=== PATIENT | female | born 1970 | race African-American/Black ===

== ENCOUNTER 2017-04-06 17:25 | Emergency (ER) | payer OTHER ==
[~2017-04-06] VITALS: Ht 162.6 cm; Wt 72.6 kg
[~2017-04-06 17:25] MED LIST: ALBUTEROL SULF8.5 GM INH; AMLODIPINE BESY10 MG ORAL; AZITHROMYCIN250 MG ORAL; AZITHROMYCIN250 MG PO; CYCLOBENZAPRINE10 MG ORAL; FERROUS SULFAT325 MG ORAL; FLUOCINOLONE AC15 G2; GLIPIZIDE5 MG ORAL; HYDROCODON-ACE1 EA15; HYDROXYZINE HCL50 M1; IBUPROFEN600 M1; IBUPROFEN600 MG ORAL; KEFLEX500 MG ORAL; LISINOPRIL20 MG ORAL; LISINOPRIL30 MG ORAL; METFORMIN HCL850 M1 ORAL; NKM; NORCO 5-325 TA1 EACH ORAL; PHENTERMINE HCL30 MG; PREPARATION H1 EAC3 RC; SALINE NASAL SP45 ML NASAL; TAMIFLU75 MG ORAL; TRAMADOL HCL50 MG ORAL; TRIAMTERENE-HC1 EAC5; XENICAL120 MG; ZOFRAN ODT4 MG ORAL; ZOFRAN4 M3 ORAL
[2017-04-06] MEDS ORDERED: Ketorolac 30mg Inj IV ONE (18:15)
[2017-04-06] MEDS ORDERED: Ketorolac 60mg Inj IM ONE (18:45)
[2017-04-06] MEDS ORDERED: Acetaminophen 500mg (ES) tab ORAL ONE (18:45)
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
[2017-04-06] MEDS ORDERED: TRAMADOL HCL50 MG ORAL (21:45)
[2017-04-06] MEDS ORDERED: IBUPROFEN600 MG ORAL (21:45)
[2017-04-06] MEDS ORDERED: CYCLOBENZAPRINE10 MG ORAL (21:45)
[2017-04-06 21:50] VITALS: BP 138/88
[2017-04-06 21:55] VITALS: BP 138/88
--- NOTE | 2017-04-07 11:17 | Diagnostic Imaging Report ---
Indication: Back pain Findings: 2 views of the thoracic spine were obtained. Normal bony mineralization and alignment are demonstrated. Minimal osteophyte formation noted at the level the vertebral endplates. Vertebral body heights and intervertebral disc heights are normal. The posterior elements including the facets are unremarkable. Soft tissues are unremarkable. Cholecystectomy clips are present. Impression: No acute injury identified
--- NOTE | 2017-04-07 11:28 | Diagnostic Imaging Report ---
Indication: Neck Pain Findings: 3 views of the cervical spine were obtained. There is no acute fracture identified. There is reversal of cervical lordosis. The open-mouth odontoid view shows an intact dens and good alignment of the lateral masses with respect to the body of C2. There is not adequate visualization of the cervical spine below C5. There is no soft tissue swelling. Impression: No acute injury.. Suboptimal visualization of the lower cervical spine
--- NOTE | 2017-04-07 11:28 | Diagnostic Imaging Report ---
Indication: Back pain Comparison: None Findings: 3 views of the lumbar spine were obtained. Multilevel narrowing of intervertebral disks and associated endplate and Facet osteophytes are present. No malalignment identified. No acute fracture definitely seen. Impression: Mild spondylosis. No acute injury appreciated.
== END 2017-04-06 21:54 | disposition home or self-care (01) ==
LOC: EMR 18:54
DX: S13.4XXA Sprain of ligaments of cervical spine, initial encounter (principal); S39.012A Strain of muscle, fascia and tendon of lower back, initial encounter; I10 Essential (primary) hypertension; E11.9 Type 2 diabetes mellitus without complications; V43.52XA Car driver injured in collision with other type car in traffic accident, initial encounter; Y93.9 Activity, unspecified; Y92.410 Unspecified street and highway as the place of occurrence of the external cause
CPT/HCPCS: 72020; 72040; 72052; 72070; 96372; 99283

== ENCOUNTER 2017-11-30 23:29 | Emergency (ER) | payer OTHER ==
[~2017-11-30] VITALS: Ht 154.9 cm; Wt 81.6 kg
[2017-12-01 00:10] VITALS: BP 145/87
[2017-12-01] MEDS ORDERED: traMADol 50mg tab ORAL ONE (00:15)
--- NOTE | 2017-12-01 00:40 | Emergency Room Report ---
History of Present Illness General Chief Complaint: Earache Source: Patient Present Illness HPI Is a 47-year-old female with history of GI bleed in the past. She presents with chief complaint of bilateral ear pain. Onset for a week. Also with headache. Pain is 8/10. No nausea no vomiting. Tylenol is not helping. No fever or chills. Also complaining of generalize weakness and think that her hemoglobin may be low. No bleeding however. Allergies: Coded Allergies: No Known Allergies (Verified Allergy, Unknown, 02/26/10) Patient History Past Medical History: see triage record, old chart reviewed Past Surgical History: other Pertinent Family History: none Social History: Denies: smoking Last Menstrual Period: Nov 0708/2017 Now: No Immunizations: other Reviewed Nursing Documentation: PMH: Agreed, PSxH: Agreed Nursing Documentation-PMH Hx Cardiac Problems: No Hx Hypertension: Yes Hx Asthma: No Hx COPD: No Hx Diabetes: Yes Hx Cancer: No Hx Gastrointestinal Problems: No Hx Dialysis: No Hx Neurological Problems: No Hx Cerebrovascular Accident: No Hx Seizures: No Hx Dizziness: Yes - RECENTLY Hx Headaches: Yes - 1 WEEK Hx Numbness: Yes - HANDS Hx Weakness: Yes - GEN BODY Hx Fatigue: Yes - GEN BODY Review of Systems Eye: Denies: eye pain, blurred vision ENT: Reports: ear pain, Denies: nose congestion, throat swelling Respiratory: Denies: cough, shortness of breath Cardiovascular: Denies: chest pain, palpitations Gastrointestinal: Denies: abdominal pain, diarrhea, nausea, vomiting Musculoskeletal: Denies: back pain, joint pain Skin: Denies: rash Neurological: Denies: headache, numbness Endocrine: Denies: increased thirst, increased urine Hematologic/Lymphatic: Denies: easy bruising All Other Systems: negative except mentioned in HPI Physical Exam Vital Signs Date Time Temp Pulse Resp B/P (MAP) Pulse Ox O2 Delivery O2 Flow Rate FiO2 11/30/17 23:49 98.2 113 20 154/89 98 Room Air vitals with tachycardia and high blood pressure Sp02 EP Interpretation: reviewed, normal General Appearance: well appearing, no apparent distress, alert Head: normocephalic, atraumatic Eyes: bilateral eye PERRL, bilateral eye EOMI ENT: hearing grossly normal, normal pharynx, other - Left TM with fluid Neck: full range of motion, supple, no meningismus Respiratory: chest non-tender, lungs clear, normal breath sounds Cardiovascular #1: regular rate, rhythm, no murmur Gastrointestinal: normal bowel sounds, non tender, no mass, no organomegaly, no bruit, non-distended Musculoskeletal: back normal, gait/station normal, normal range of motion Psychiatric: mood/affect normal Skin: warm/dry Medical Decision Making Diagnostic Impression: Primary Impression: Earache symptoms in both ears Additional Impressions: Left otitis media with effusion Headache Qualified Codes: R51 - Headache Anemia, unspecified Qualified Codes: D64.9 - Anemia, unspecified ER Course Present with headache and ear pain. May be a sinus issue going on. No evidence of mastoiditis, meningitis, bleed or neoplastic process. We'll discharge home. Last Vital Signs Date Time Temp Pulse Resp B/P (MAP) Pulse Ox O2 Delivery O2 Flow Rate FiO2 12/01/17 00:10 98.1 98 19 145/87 97 Room Air Status: improved Disposition: HOME, SELF-CARE Condition: Stable Scripts Amoxicillin* (AMOXIL*) 500 Mg Capsule 500 MG ORAL THREE TIMES A DAY, #21 CAP Prov: ALEK INMAN M.D. 12/01/17 Hydrocodone Bit/Acetaminophen 5-325* (NORCO 5-325*) 1 Each Tablet 1 TAB ORAL Q6H Y for For Pain, #15 TAB 0 Refills Prov: ALEK INMAN M.D. 12/01/17 Referrals: [facility],REFERRING (PCP) Patient Instructions: Otitis Media, Adult, [id number] Additional Instructions: Followup with your DrPb 7 days. Return if symptom worsen. ALEK INMAN M.D. Dec 01, 2017 00:40
[2017-12-01 00:57] LABS: BASOPHILS % (AUTO) 1.4 % (0.0-2.0); EOSINOPHILS % (AUTO) 3.3 % (0.0-3.0); HEMATOCRIT 31.8 % (37.0-47.0); LYMPHOCYTES % (AUTO) 16.9 % (20.0-45.0); MEAN CORPUSCULAR VOLUME 62 FL (80-99); NEUTROPHILS % (AUTO) 73.4 % (45.0-75.0); PLATELET COUNT 242 K/UL (150-450); RED BLOOD COUNT 5.13 M/UL (4.20-5.40); RED CELL DISTRIBUTION WIDTH 17.3 % (11.6-14.8); WHITE BLOOD COUNT 10.3 K/UL (4.8-10.8)
[2017-12-01] MEDS ORDERED: NORCO 5-325 TA1 EACH ORAL (01:12)
[2017-12-01] MEDS ORDERED: AMOXICILLIN500 MG ORAL (01:12)
[2017-12-01 01:15] VITALS: BP 132/86
[2017-12-01 01:25] VITALS: BP 132/86
[2018-01-29] MEDS ORDERED: NORCO 5-325 TA1 EACH ORAL (18:57)
[2018-01-29] MEDS ORDERED: AUGMENTIN 875-1 EAC1 ORAL (18:57)
== END 2017-12-01 01:25 | disposition home or self-care (01) ==
LOC: EMR 12-01 00:18
DX: H66.92 Otitis media, unspecified, left ear (principal); R51 Headache; I10 Essential (primary) hypertension; E11.9 Type 2 diabetes mellitus without complications
CPT/HCPCS: 36415; 85025; 99284

== ENCOUNTER 2018-01-12 18:35 | Emergency (ER) | payer MEDICAID, OTHER ==
[~2018-01-12] VITALS: Ht 154.9 cm; Wt 83.5 kg
[~2018-01-12 18:35] MED LIST changes: +AMOXICILLIN500 MG ORAL
[2018-01-12 19:00] VITALS: BP 165/99
[2018-01-12] MEDS ORDERED: Lidocaine 1% MPF 10mg/ml 5ml INJ ONE (19:30)
[2018-01-12] MEDS ORDERED: HYDROcodone/Acetamin 7.5/325 tab ORAL ONE (20:00)
--- NOTE | 2018-01-12 20:23 | Emergency Room Report ---
History of Present Illness General Chief Complaint: General Complaint Source: Patient, Medical Record Present Illness HPI 47-year-old female presents to the emergency department complaining of progressive 10 out of 10 in severity localized pain to the right distal thumb about the area of her fingernail over the course of 2 days. Patient reports that she believes she recalls having a hangnail 2 days prior. Patient had acrylic nails placed recently as well. Patient reports swelling, erythema and tenderness primarily to one portion of the cuticle which has progressed. Patient denies finger pad tenderness, fevers, chills, streaking from the finger at the hand/arm. Patient denies history of immunocompromise, recent trauma or fall. Denies numbness tingling or loss of sensation or gross motor movements of the extremities, incontinence of bowel or bladder. Denies CP, Palpitations, LOC , AMS, dizziness, Changes in Vision, Sensation, paresthesias, or a sudden severe headache. She is right-hand dominant. Allergies: Coded Allergies: No Known Allergies (Verified Allergy, Unknown, 02/26/10) Patient History Past Medical History: see triage record Past Surgical History: none Pertinent Family History: none Last Menstrual Period: 01/12/18 Reviewed Nursing Documentation: PMH: Agreed, PSxH: Agreed Nursing Documentation-PMH Past Medical History: No History, Except For Hx Cardiac Problems: No Hx Hypertension: Yes Hx Asthma: No Hx COPD: No Hx Diabetes: Yes Hx Cancer: No Hx Gastrointestinal Problems: No Hx Dialysis: No Hx Neurological Problems: No Hx Cerebrovascular Accident: No Hx Seizures: No Hx Dizziness: Yes - RECENTLY Hx Headaches: Yes - 1 WEEK Hx Numbness: Yes - HANDS Hx Weakness: Yes - GEN BODY Hx Fatigue: Yes - GEN BODY Review of Systems All Other Systems: negative except mentioned in HPI Physical Exam Vital Signs Date Time Temp Pulse Resp B/P (MAP) Pulse Ox O2 Delivery O2 Flow Rate FiO2 01/12/18 18:38 98.7 99 18 165/99 97 Room Air 98.8 Sp02 EP Interpretation: reviewed, normal General Appearance: no apparent distress, alert, GCS 15, non-toxic Head: normocephalic, atraumatic ENT: hearing grossly normal, normal voice Neck: full range of motion Respiratory: lungs clear, normal breath sounds, speaking full sentences Cardiovascular #1: regular rate, rhythm, normal capillary refill Musculoskeletal: back normal, gait/station normal, normal range of motion, tender - TTP to the lateral cuticle line of the right thumb, no finger pad tenderness or erythema. erythema and swelling noted to the dorsum of the right thumb about the cuticle. Neurologic: alert, oriented x3, responsive, motor strength/tone normal, sensory intact, speech normal, grossly normal Psychiatric: judgement/insight normal Skin: warm/dry, well hydrated, other - erythema, swelling to the dorsum of the right thumb at the lateral cuticle line. Procedures Incision and Drainage Incision and Drainage : Consent: Verbal Site: Right Thumb Blade Size: 11 I & D Procedure: betadine prep Wound Location: upper extremity - right thumb- lateral cuticle Wound's Depth, Shape: linear Wound Length (cm): 0 Wound Explored: contaminated - some purulent drainage and blood was expressed Anesthesia: 1% Lidocaine Volume Anesthetic (ccs): 6 Splint Applied?: Yes Type of Splint Applied: Finger Splint Sling Applied?: No Patient Tolerated: Well Complications: None Progress - verbal consent was received . - lesion was cleaned with betadine prep. -Digital Block was performed using 6cc of 1% plain Lidocaine. - Small incision using a sterile No. 11 Scalpel blade to drain the paronychia. pt. tolerated well without complication. - sterile band-aid was then applied afterward. Medical Decision Making PA Attestation Dr. Evans is my supervising Physician whom patient management has been discussed with. Diagnostic Impression: Primary Impression: Paronychia of finger Qualified Codes: L03.011 - Cellulitis of right finger ER Course 47-year-old female presents to the emergency department complaining of progressive 10 out of 10 in severity localized pain to the right distal thumb about the area of her fingernail over the course of 2 days. Patient reports that she believes she recalls having a hangnail 2 days prior. Patient had acrylic nails placed recently as well. Patient reports swelling, erythema and tenderness primarily to one portion of the cuticle which has progressed. Patient denies finger pad tenderness, fevers, chills, streaking from the finger at the hand/arm. Patient denies history of immunocompromise, recent trauma or fall. Denies numbness tingling or loss of sensation or gross motor movements of the extremities, incontinence of bowel or bladder. Denies CP, Palpitations, LOC , AMS, dizziness, Changes in Vision, Sensation, paresthesias, or a sudden severe headache. She is right-hand dominant. Ddx considered but are not limited to cellulitis, paronychia, eponychia, ingrown toe nail, fracture, d/L, gout Vital signs: are WNL, pt. is afebrile H&PE are most consistent with left middle finger paronychia ORDERS: none required at this time, the diagnosis is clinical ED INTERVENTIONS: - verbal consent was received . - lesion was cleaned with betadine prep. -Digital Block was performed using 6cc of 1% plain Lidocaine. - Small incision using a sterile 25g needle to drain the paronychia. pt. tolerated well without complication. - sterile band-aid was then applied afterward. - will d/c pt. with PO abx. D/w Patient is to regularly do warm water soaks with affected finger at minimum a 6 times per day. Discussed with patient she'll be discharged with oral antibiotics, topical antibiotic and instructed to keep a close eye on the finger for worsening or new symptoms which would indicate prompt return back to emergency department for more aggressive treatment. DISCHARGE: At this time pt. is stable for d/c to home. Will provide printed patient care instructions, and any necessary prescriptions. Care plan and follow up instructions have been discussed with the patient prior to discharge. Last Vital Signs Date Time Temp Pulse Resp B/P (MAP) Pulse Ox O2 Delivery O2 Flow Rate FiO2 01/12/18 19:00 98.8 18 165/99 97 Room Air 98.8 01/12/18 18:38 99 Disposition: HOME, SELF-CARE Condition: Stable Scripts Mupirocin* (MUPIROCIN*) 22 Gm Oint...g. 1 APPLIC TOPIC THREE TIMES A DAY, #22 GM Prov: Angelika Murry P.A. 01/12/18 Clindamycin Hcl (CLINDAMYCIN HCL) 300 Mg Capsule 300 MG ORAL FOUR TIMES A DAY for 7 Days, #28 CAP Prov: Angelika Murry P.A. 01/12/18 Ibuprofen* (MOTRIN*) 600 Mg Tablet 600 MG ORAL THREE TIMES A DAY, #30 TAB 0 Refills Prov: Angelika Murry P.A. 01/12/18 Hydrocodone Bit/Acetaminophen 5-325* (NORCO 5-325*) 1 Each Tablet 1 TAB ORAL Q6H Y for For Pain, #6 TAB 0 Refills Prov: Angelika Murry 01/12/18 Departure Forms: Return to Work Return to Work Date: Jan 16, 2018 Work Restrictions: No Heavy Lifting Other Restrictions: light duty x 1 week. Return to Full Activity: Jan 23, 2018 Patient Instructions: Paronychia Additional Instructions: Take medications as directed. WARM WATER SOAKS at least SIX TIMES PER DAY x 1 week Follow up with a Primary Care Provider in 3 days, even if your symptoms have resolved. --Please review list of primary care clinics, if you do not already have a primary care provider Return sooner to ED if new symptoms occur, or current symptoms become worse. Do not drink alcohol, drive, or operate heavy machinery while taking [place] as this may cause drowsiness. - Please note that this Emergency Department Report was dictated using [employer] conditioner filling technology software, occasionally this can lead to erroneous entry secondary to interpretation by the dictation equipment. Angelika Murry Jan 12, 2018 20:23
[2018-01-12] MEDS ORDERED: NORCO 5-325 TA1 EACH ORAL (20:25)
[2018-01-12] MEDS ORDERED: MUPIROCIN22 GM TOPIC (20:25)
[2018-01-12] MEDS ORDERED: IBUPROFEN600 MG ORAL (20:25)
[2018-01-12] MEDS ORDERED: CLINDAMYCIN HC300 MG ORAL (20:25)
[2018-01-12] MEDS ORDERED: Clindamycin 150mg cap ORAL ONE (20:30)
[2018-01-12 20:35] VITALS: BP 165/99
[2018-01-29] MEDS ORDERED: AUGMENTIN 875-1 EAC1 ORAL (18:57)
[2018-01-29] MEDS ORDERED: NORCO 5-325 TA1 EACH ORAL (18:57)
== END 2018-01-12 20:34 | disposition home or self-care (01) ==
LOC: EMR 19:00
DX: L03.011 Cellulitis of right finger (principal); I10 Essential (primary) hypertension; E11.9 Type 2 diabetes mellitus without complications
CPT/HCPCS: 10060; 99283

== ENCOUNTER 2018-01-19 00:31 | Emergency (ER) | payer MEDICAID ==
[~2018-01-19] VITALS: Ht 154.9 cm; Wt 84.8 kg
[~2018-01-19 00:31] MED LIST changes: +CLINDAMYCIN HC300 MG ORAL; +MUPIROCIN22 GM TOPIC
[2018-01-19] MEDS ORDERED: Lidocaine 1% Plain 30 ml INJ ONE (01:30)
[2018-01-19 03:04] VITALS: BP 170/101
--- NOTE | 2018-01-19 03:20 | Emergency Room Report ---
History of Present Illness General Chief Complaint: Upper Extremity Injury Source: Patient Present Illness HPI Patient with R thumb pain. Had I and D 01/12 after 2 days of pain. On clindamycin. Still with swelling and tenderness R thumb. After d/c, no continued drainage. Soaking in peroxide. Pain again 09/07, constant and burning pressure, not radiating. She states it started in the pulp of her thumb , but is now localized on the side of the nail. No fevers or chills. No other somatic complaints. Diabetic - states glucose well controlled. 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 + (denies now), Denies: smoking Social History Narrative with son Last Menstrual Period: Dec Reviewed Nursing Documentation: PMH: Agreed, PSxH: Agreed Nursing Documentation-PMH Hx Cardiac Problems: No Hx Hypertension: Yes Hx Asthma: No Hx COPD: No Hx Diabetes: Yes Hx Cancer: No Hx Gastrointestinal Problems: No Hx Dialysis: No Hx Neurological Problems: No Hx Cerebrovascular Accident: No Hx Seizures: No Hx Dizziness: Yes - RECENTLY Hx Headaches: Yes - 1 WEEK Hx Numbness: Yes - HANDS Hx Weakness: Yes - GEN BODY Hx Fatigue: Yes - GEN BODY Review of Systems All Other Systems: negative except mentioned in HPI Physical Exam Vital Signs Date Time Temp Pulse Resp B/P (MAP) Pulse Ox O2 Delivery O2 Flow Rate FiO2 01/19/18 00:37 97.3 116 18 166/101 95 Room Air 97.3 Sp02 EP Interpretation: reviewed, normal General Appearance: well appearing, no apparent distress, GCS 15 Head: normocephalic, atraumatic Eyes: bilateral eye normal inspection, bilateral eye PERRL ENT: hearing grossly normal, normal voice Neck: full range of motion, supple Respiratory: no respiratory distress, speaking full sentences Cardiovascular #2: 2+ radial (R) - good cap fill Musculoskeletal: gait/station normal, normal range of motion, swelling - ulnar side of thumb nail Neurologic: alert, sensory intact, normal gait, grossly normal Psychiatric: mood/affect normal Skin: other - paronychia Procedures Incision and Drainage Incision and Drainage : Consent: Verbal Site: R thumb Blade Size: 11 I & D Procedure: betadine prep, sterile drapes applied, sterile dressing applied, gauze wick placed Wound Location: upper extremity Wound's Depth, Shape: superficial Wound Length (cm): 0 - 0.5 cm Wound Explored: contaminated - irrigated Anesthesia: 1% Lidocaine Volume Anesthetic (ccs): 2 - 1.5 Patient Tolerated: Well Complications: None Progress I suggested wedge resection of nail. She refused. We agreed on I and D with drain placement. Medical Decision Making Diagnostic Impression: Primary Impression: incision and drainage paronychium Additional Impressions: Paronychia Encounter for incision and drainage procedure ER Course Patient returns on antibiotics after I and D procedure. DDx: cellulitis, recurrance of paronychia. See procedure note. No evidence of felon or cellulitis. Tolerated procedure well. Pain after tx with motrin as she is driving. Patient stable for outpatient observation and treatment. Last Vital Signs Date Time Temp Pulse Resp B/P (MAP) Pulse Ox O2 Delivery O2 Flow Rate FiO2 01/19/18 03:43 97.3 18 166/101 95 Room Air 207.1 01/19/18 03:04 83 Status: improved Disposition: HOME, SELF-CARE Condition: Improved Scripts Ibuprofen* (MOTRIN*) 600 Mg Tablet 600 MG ORAL Q6H Y for For Pain, #20 TAB Prov: Chung Beck M.D. 01/19/18 Hydrocodone Bit/Acetaminophen 5-325* (NORCO 5-325*) 1 Each Tablet 1 TAB ORAL Q6H Y for For Pain, #12 TAB 0 Refills Prov: Chung Beck M.D. 01/19/18 Bacitracin (Bacitracin) 28.4 Gm Oint...g. 1 APPLIC TOPIC BID, #20 GM Prov: Chung Beck M.D. 01/19/18 Referrals: [facility],REFERRING (PCP) Chung Beck M.D. Jan 19, 2018 03:20
[2018-01-19] MEDS ORDERED: IBUPROFEN600 MG ORAL (03:23)
[2018-01-19] MEDS ORDERED: NORCO 5-325 TA1 EACH ORAL (03:23)
[2018-01-19] MEDS ORDERED: BACITRACIN15 GM TOPIC (03:23)
[2018-01-19 03:43] VITALS: BP 166/101
[2018-01-29] MEDS ORDERED: AUGMENTIN 875-1 EAC1 ORAL (18:57)
[2018-01-29] MEDS ORDERED: NORCO 5-325 TA1 EACH ORAL (18:57)
== END 2018-01-19 03:44 | disposition home or self-care (01) ==
LOC: EMR 01:01
DX: L03.011 Cellulitis of right finger (principal); I10 Essential (primary) hypertension; E11.9 Type 2 diabetes mellitus without complications
CPT/HCPCS: 10060; 99284; J2001

== ENCOUNTER 2018-06-30 14:14 | Emergency (ER) | payer MEDICAID ==
[~2018-06-30] VITALS: Ht 152.4 cm; Wt 76.2 kg
[~2018-06-30 14:14] MED LIST changes: +AUGMENTIN 875-1 EAC1 ORAL; +BACITRACIN15 GM TOPIC
[2018-06-30 14:31] VITALS: BP 134/88
[2018-06-30] MEDS ORDERED: Tylenol #3 tab (300mg/30mg) ORAL ONE (15:15)
[2018-06-30] MEDS ORDERED: Meclizine 25mg tab ORAL ONE (15:15)
[2018-06-30 15:29] LABS: APPEARANCE,URINE CLEAR; BILIRUBIN, URINE NEGATIVE (NEGATIVE); COLOR,URINE PALE YELLOW; GLUCOSE, URINE (UA) 4+ (NEGATIVE); KETONES,URINE NEGATIVE (NEGATIVE); LEUKOCYTE ESTERASE ,URINE 1+ (NEGATIVE); NITRITE,URINE NEGATIVE (NEGATIVE); PH,URINE 5 (4.5-8.0); PROTEIN,URINE 2+ (NEGATIVE); UROBILINOGEN,URINE NORMAL MG/DL (0.0-1.0)
--- NOTE | 2018-06-30 16:04 | Emergency Room Report ---
History of Present Illness General Chief Complaint: Pain Present Illness HPI 47 Female presents to the ED c/o 10 out of 10 in severity pain to the right posterior ear radiating down the right side of the neck 2 weeks in addition to some lower abdominal discomfort 1 week. Patient reports chills, and denies fevers, nausea, vomiting, constipation or diarrhea. Patient denies tinnitus or changes in her hearing. Patient reports progressive onset of "imbalance "and dizziness were on occasion the room Will start to spin. She denies recent head trauma. Denies sudden onset headache. Denies midline neck pain, denies photophobia. denies unilateral muscular weaknesses. Pt. reports hx of diabetes and does not check her sugar regularly. Allergies: Coded Allergies: No Known Allergies (Verified Allergy, Unknown, 02/26/10) Patient History Past Surgical History: none Pertinent Family History: none Last Menstrual Period: 06/07/18 Now: No : 3 Para: 2 Reviewed Nursing Documentation: PMH: Agreed; PSxH: Agreed Nursing Documentation-PMH Hx Cardiac Problems: No Hx Hypertension: Yes Hx Asthma: No Hx COPD: No Hx Diabetes: Yes Hx Cancer: No Hx Gastrointestinal Problems: No Hx Dialysis: No Hx Neurological Problems: No Hx Cerebrovascular Accident: No Hx Seizures: No Hx Dizziness: Yes - RECENTLY Hx Headaches: Yes - 1 WEEK Hx Numbness: Yes - HANDS Hx Weakness: Yes - GEN BODY Hx Fatigue: Yes - GEN BODY Review of Systems All Other Systems: negative except mentioned in HPI Physical Exam Vital Signs Date Time Temp Pulse Resp B/P (MAP) Pulse Ox O2 Delivery O2 Flow Rate FiO2 06/30/18 14:21 98.4 110 21 134/88 99 Room Air 98.4 Sp02 EP Interpretation: reviewed, normal General Appearance: no apparent distress, alert, GCS 15, non-toxic Head: normocephalic, atraumatic Eyes: bilateral eye normal inspection, bilateral eye PERRL ENT: hearing grossly normal, normal voice, other - right TM is bulging and opaque, fluid line noted along the bottom edge. posterior cervical LAD palpable. Neck: full range of motion, tender lateral - right side up to the mastoid area. Respiratory: chest non-tender, lungs clear, normal breath sounds, speaking full sentences Cardiovascular #1: regular rate, rhythm Gastrointestinal: normal bowel sounds, soft, tenderness - lower abdominal TTP, mild, no peritoneal signs, mainly on left side. , other - no guarding, no single / localized area tenderness. Rectal: deferred Genitourinary: normal inspection, no CVA tenderness, other Musculoskeletal: back normal, gait/station normal, normal range of motion, non- tender Neurologic: alert, oriented x3, responsive, motor strength/tone normal, sensory intact, normal gait, speech normal, other - no nystagmus on exam, grossly normal Psychiatric: judgement/insight normal Skin: normal color, no rash, warm/dry, well hydrated Lymphatic: other - several Medical Decision Making PA Attestation Dr. Page is my supervising Physician whom patient management has been discussed with. Diagnostic Impression: Primary Impression: Otitis media of right ear Qualified Codes: H66.91 - Otitis media, unspecified, right ear ER Course 47 Female presents to the ED c/o 10 out of 10 in severity pain to the right posterior ear radiating down the right side of the neck 2 weeks in addition to some lower abdominal discomfort 1 week. Patient reports chills, and denies fevers, nausea, vomiting, constipation or diarrhea. Patient denies tinnitus or changes in her hearing. Patient reports progressive onset of "imbalance "and dizziness were on occasion the room Will start to spin. She denies recent head trauma. Denies sudden onset headache. Denies midline neck pain, denies photophobia. denies unilateral muscular weaknesses. Pt. reports hx of diabetes and does not check her sugar regularly. Ddx considered but are not limited to OM, OE, mastoiditis, TM perforation, FB Vital signs: Tachycardic, remaining re WNL, pt. is afebrile H&PE are most consistent with otitis media, and possible UTI. no evidence on PE to suggest acute abdomen or pelvic process. pt. NAD non-toxic in appearance. ORDERS: -UA: no evidence of bacteria, protein and glucose suggest elevated blood glucose levels. -OTOSCOPY: Right TM is white and opaque in color, bulging with mild fluid line noted. the left TM is unremarkable/wnl ED INTERVENTIONS: None required at this time. - Pt. is given strict ED return precautions, otherwise is to follow up with ENT Specialist in 3-5 days. DISCHARGE: At this time pt. is stable for d/c to home. With PO ABX. Will provide printed patient care instructions, and any necessary prescriptions. Care plan and follow up instructions have been discussed with the patient prior to discharge. Labs Test 06/30/18 15:05 Urine Color Pale yellow Urine Appearance Clear Urine pH 5 (4.5-8.0) Urine Specific [place] 1.010 (1.005-1.035) Urine Protein 2+ (NEGATIVE) Urine Glucose (UA) 4+ (NEGATIVE) Urine Ketones Negative (NEGATIVE) Urine Occult Blood Negative (NEGATIVE) Urine Nitrite Negative (NEGATIVE) Urine Bilirubin Negative (NEGATIVE) Urine Urobilinogen Normal MG/DL (0.0-1.0) Urine Leukocyte Esterase 1+ (NEGATIVE) Urine RBC 0-2 /HPF (0 - 2) Urine WBC 2-4 /HPF (0 - 2) Urine Squamous Epithelial Cells Few /LPF (NONE/OCC) Urine Bacteria Occasional /HPF (NONE) Last Vital Signs Date Time Temp Pulse Resp B/P (MAP) Pulse Ox O2 Delivery O2 Flow Rate FiO2 06/30/18 15:22 98.4 06/30/18 14:31 110 21 134/88 99 Room Air Disposition: HOME, SELF-CARE Condition: Stable Scripts Acetaminophen* (TYLENOL EXTRA STRENGTH*) 500 Mg Tablet 500 MG ORAL Q6H PRN for Mild Pain/Temp > 100.5, #20 TAB 0 Refills Prov: Agnelika Murry 06/30/18 Pseudoephedrine Hcl* (NEXAFED*) 30 Mg Tablet 30 MG ORAL Q6H PRN for congestion, #20 TAB Prov: Angelika Murry 06/30/18 Loratadine (CLARITIN) 10 Mg Tab.rapdis 10 MG ORAL DAILY, #20 TAB Begin Daily AFTER finnishing Meclizine. Prov: Angelika Murry 06/30/18 Meclizine Hcl* (MECLIZINE*) 25 Mg Tablet 25 MG ORAL THREE TIMES A DAY, #15 TAB Prov: Angelika Murry 06/30/18 Amoxicillin/Potassium Clav 875-125* (AUGMENTIN 875-125 TABLET*) 1 Each Tablet 1 TAB ORAL TWICE A DAY for 10 Days, #20 TAB Prov: Angelika Murry 06/30/18 Referrals: [facility] (PCP) Departure Forms: Return to Work Return to Work Date: Jul 12, 2018 Work Restrictions: None Other Restrictions: excuse for 06/30 - 07/05. may return sooner if symptoms have resolved. Return to Full Activity: Jul 05, 2018 Patient Instructions: Otitis Media, Adult, [id number], Vertigo, [id number] Additional Instructions: Take medications as directed. Follow up with an ENT Specialist in 3-5 days, even if your symptoms have resolved. --Please review list of primary care clinics, if you do not already have a primary care provider Return sooner to ED if new symptoms occur, or current symptoms become worse. Do not drink alcohol, drive, or operate heavy machinery while taking Meclizine as this may cause drowsiness. - Please note that this Emergency Department Report was dictated using Wheelyclient renewal specialist technology software, occasionally this can lead to erroneous entry secondary to interpretation by the dictation equipment. Angelika Murry Jun 30, 2018 16:04
[2018-06-30] MEDS ORDERED: CLARITIN10 M1 ORAL (16:07)
[2018-06-30] MEDS ORDERED: MECLIZINE HCL25 MG ORAL (16:07)
[2018-06-30] MEDS ORDERED: AUGMENTIN 875-1 EAC1 ORAL (16:07)
[2018-06-30] MEDS ORDERED: NEXAFED30 MG ORAL (16:07)
[2018-06-30 16:09] VITALS: BP 141/92
[2018-06-30] MEDS ORDERED: TYLENOL EXTRA500 MG ORAL (16:11)
[2018-06-30 16:13] VITALS: BP 141/92
== END 2018-06-30 16:10 | disposition home or self-care (01) ==
LOC: EMR 14:42
DX: H66.91 Otitis media, unspecified, right ear (principal); I10 Essential (primary) hypertension; E11.9 Type 2 diabetes mellitus without complications; R10.30 Lower abdominal pain, unspecified
CPT/HCPCS: 81003; 99283

== ENCOUNTER 2018-08-11 12:11 | Emergency (ER) | payer MEDICAID ==
[~2018-08-11] VITALS: Ht 154.9 cm; Wt 81.6 kg
[~2018-08-11 12:11] MED LIST changes: +CLARITIN10 M1 ORAL; +MECLIZINE HCL25 MG ORAL; +NEXAFED30 MG ORAL; +TYLENOL EXTRA500 MG ORAL
[2018-08-11 12:29] VITALS: BP 155/95
[2018-08-11] MEDS ORDERED: CLARITIN-D 121 EAC1 ORAL (12:48)
[2018-08-11] MEDS ORDERED: FLONASE ALLERG9.9 ML NS (12:48)
--- NOTE | 2018-08-11 12:49 | Emergency Room Report ---
History of Present Illness General Chief Complaint: Earache Source: Patient, Medical Record Present Illness HPI 47-year-old female patient presents ER complaining of right ear pain for over the past month. Reports was previously seen by [facility] and her primary care provider for similar symptoms. States she has taken [id number] antibiotics, antihistamines, eardrops for symptoms. States that she had a referral to an ENT specialist but it was not approved by her insurance and because her primary care provider was out of town she reported to the ER today for symptoms. Denies fever, chest pain, shortness of breath. Denies sore throat, tinnitus, vision changes. Reports history of high blood pressure and diabetes, states that both are well controlled, states taking medications for both. denies ear discharge or recent swimming. Reports recently seen by dentist a few months ago, denies tooth pain. also small amount of swelling near her left eye, reports it is pruritic. Denies recent injury or trauma. She denies pain with eye movement. Patient reports runny nose and allergy symptoms or numbness time worse at night. Allergies: Coded Allergies: No Known Allergies (Verified Allergy, Unknown, 02/26/10) Patient History Past Medical History: see triage record Last Menstrual Period: 08/08/18 Reviewed Nursing Documentation: PMH: Agreed; PSxH: Agreed Nursing Documentation-PMH Past Medical History: No History, Except For Hx Cardiac Problems: No Hx Hypertension: Yes Hx Asthma: No Hx COPD: No Hx Diabetes: Yes Hx Cancer: No Hx Gastrointestinal Problems: No Hx Dialysis: No Hx Neurological Problems: No Hx Cerebrovascular Accident: No Hx Seizures: No Hx Dizziness: Yes - RECENTLY Hx Headaches: Yes - 1 WEEK Hx Numbness: Yes - HANDS Hx Weakness: Yes - GEN BODY Hx Fatigue: Yes - GEN BODY Review of Systems All Other Systems: negative except mentioned in HPI Physical Exam Vital Signs Date Time Temp Pulse Resp B/P (MAP) Pulse Ox O2 Delivery O2 Flow Rate FiO2 08/11/18 12:19 98.3 95 18 155/95 100 Room Air 98.2 Sp02 EP Interpretation: reviewed, normal General Appearance: well appearing, no apparent distress, alert, GCS 15, non- toxic Head: normocephalic, atraumatic, other - no erythema or edema noted around the eyes, no eyelid swelling, no facial swelling, no erythema or edema noted over her mastoid processes bilaterally Eyes: bilateral eye normal inspection, bilateral eye PERRL, bilateral eye EOMI ENT: hearing grossly normal, normal pharynx, no angioedema, normal voice, TMs + canals normal, uvula midline, moist mucus membranes, nasal congestion, other - no cerumen bilaterally Neck: full range of motion, no bony tend Respiratory: lungs clear, normal breath sounds, no rhonchi, no respiratory distress, no accessory muscle use, no wheezing, speaking full sentences Cardiovascular #1: regular rate, rhythm, no edema Musculoskeletal: back normal, digits/nails normal, gait/station normal, normal range of motion, non-tender Neurologic: alert, oriented x3, responsive, technical supervisor III-XII nml as tested, motor strength/tone normal, sensory intact Skin: no rash Lymphatic: no adenopathy Medical Decision Making PA Attestation Dr. Grace is my supervising Physician whom patient management has been discussed with. Diagnostic Impression: Primary Impression: Allergic sinusitis ER Course Pt presents to ED c/o earache and swelling her left eye. DDX considered but are not limited to s influenza, viral URI, pneumonia, strep throat, rhinitis, sinusitis, otitis media, conjunctivitis, preseptal cellulitis , allergic reaction, stye, chalazion. no focal neuro deficits, cranial nerves intact as tested, patient talking and answering questions normally, does not require CT of head. VITAL SIGNS are WNL, patient is afebrile. Blood pressure mildly elevated at this time, will continue to monitor. Denies chest pain, shortness of breath, vision changes, does not require acute intervention at ER at this time. Follow with primary care provider discuss further treatment and referral. Advised on low-sodium diet, advised on diet and exercise. ER COURSE: no swelling or erythema noted on physical exam, EOMs intact, no vision loss, does not require CT of head, low suspicion for preseptal cellulitis. patient states swelling is pruritic, instructed to take Claritin for itching symptoms. Will provide Rx for patient. nonerythematous TMs, no effusion, no erythema or edema noted ear canal, no pain with ear pulling. No effusion. No suspicion for otitis media or externa. no erythema or edema noted in oral pharynx, no abscess, no tenderness to palpation of teeth, low suspicion for dental infection. Nasal congestion noted on physical exam, likely allergic symptoms causing sinusitis leading to her symptoms. patient previously treated with Augmentin, low suspicion for bacterial infection requiring repeated use of antibiotics. patient needs to follow-up with ENT specialist, provided contact information for patient. If unable to follow-up with PCP, follow-up free and low-cost healthcare clinics. Contact PCP to get referral for ENT specialist. DISCHARGE: -Rx given for Flonase -Rx given for Claritin-D for sinus congestion. At this time pt is stable for d/c to home. Patient reports being in no acute distress currently. Patient will be treated for probable sinus congestion and patient agrees with treatment plan. Patient to take medications as instructed Will provide with patient care instructions and any necessary prescriptions. Care plan and follow-up instructions provided. Patient instructed to follow-up with primary care provider in 3 - 5 days and discuss follow-up with dentist for any tooth pain. Patient questions asked and answered. ER precautions given. Patient instructed to return to ER immediately for any new or worsening of symptoms including but not limited to fever, facial weakness , difficulty speaking, difficulty breathing, difficulty swallowing. - Please note that this Emergency Department Report was dictated using Infomousshellfish shucker technology software, occasionally this can lead to erroneous entry secondary to interpretation by the dictation equipment. Last Vital Signs Date Time Temp Pulse Resp B/P (MAP) Pulse Ox O2 Delivery O2 Flow Rate FiO2 08/11/18 12:29 98.2 18 155/95 100 Room Air 98.2 08/11/18 12:19 95 Disposition: HOME, SELF-CARE Condition: Stable Scripts Fluticasone Propionate (Flonase Allergy Relief) 9.9 Ml [place].susp 9.9 ML NS BID, #9.9 ML Prov: Ray Heard 08/11/18 Loratadine/Pseudoephedrine (CLARITIN-D 12 HOUR TABLET) 1 Each Tab.er.12h 1 TAB ORAL EVERY 12 HOURS, #30 TAB Prov: Ray Heard 08/11/18 Patient Instructions: Allergies, Ihcy-uc-Otwm, Earache, Sinusitis, Adult, Easy- to-Read Additional Instructions: Follow-up with ENT specialist, unable to get referral from PCP follow-up with free and low-cost healthcare clinics. Followup with primary care provider in 3 -5 days. Take medications as directed. Continue to monitor high blood pressure and diabetes, some low-sodium diet. Patient questions asked and answered. ER precautions given, patient instructed to return to ER immediately for any new or worsening of symptoms. Ray Heard Aug 11, 2018 12:49
[2018-08-11 13:00] VITALS: BP 155/95
== END 2018-08-11 13:00 | disposition home or self-care (01) ==
LOC: EMR 12:43
DX: J30.9 Allergic rhinitis, unspecified (principal); H92.01 Otalgia, right ear; E11.9 Type 2 diabetes mellitus without complications; I10 Essential (primary) hypertension
CPT/HCPCS: 99283

== ENCOUNTER 2018-10-19 18:20 | Emergency (ER) | payer MEDICAID ==
[~2018-10-19] VITALS: Ht 157.5 cm; Wt 81.6 kg
[~2018-10-19 18:20] MED LIST changes: +CLARITIN-D 121 EAC1 ORAL; +FLONASE ALLERG9.9 ML NS
[2018-10-19] MEDS ORDERED: UNOBMED (18:32)
--- NOTE | 2018-10-19 18:54 | Emergency Room Report ---
History of Present Illness General Chief Complaint: Back Pain-No Injury Source: Patient, Medical Record Present Illness HPI 47-year-old female patient presents ER with multiple complaints. Patient reports that she has had burning pain with urination for the past 3 days as well as right-sided flank during this time. Denies hematuria, frequency, urgency, vaginal discharge. Denies foul-smelling odor. denies pain radiating down her legs. Denies bowel or bladder incontinence. Denies diarrhea. Also reports fall onto outstretched left hand 2 weeks ago. Reports right-hand dominant. Reports pain and swelling. Reports "initially thought was a bruise" and has been "soaking it." denies taking pain medicine. reports pain in hand and wrist. Denies fever, chest pain, shortness of breath. Denies head injury. Denies loss of consciousness or vomiting. reports history of diabetes. States takes medication, well-controlled. Allergies: Coded Allergies: No Known Allergies (Verified , 10/19/18) Patient History Past Medical History: see triage record Last Menstrual Period: 10/08/18 Now: No Reviewed Nursing Documentation: PMH: Agreed; PSxH: Agreed Nursing Documentation-PMH Past Medical History: No History, Except For Hx Cardiac Problems: No Hx Hypertension: Yes Hx Asthma: No Hx COPD: No Hx Diabetes: Yes Hx Cancer: No Hx Gastrointestinal Problems: No Hx Dialysis: No History Of Psychiatric Problem: No Hx Neurological Problems: No Hx Cerebrovascular Accident: No Hx Seizures: No Hx Dizziness: Yes - RECENTLY Hx Headaches: Yes - 1 WEEK Hx Numbness: Yes - HANDS Hx Weakness: Yes - GEN BODY Hx Fatigue: Yes - GEN BODY Review of Systems All Other Systems: negative except mentioned in HPI Physical Exam Vital Signs Date Time Temp Pulse Resp B/P (MAP) Pulse Ox O2 Delivery O2 Flow Rate FiO2 10/19/18 18:26 98.2 100 18 98 Room Air Sp02 EP Interpretation: reviewed, normal General Appearance: well appearing, no apparent distress, alert, GCS 15, non- toxic Head: normocephalic, atraumatic Eyes: bilateral eye normal inspection, bilateral eye PERRL ENT: hearing grossly normal, normal pharynx, no angioedema, normal voice, uvula midline, moist mucus membranes Neck: full range of motion Respiratory: lungs clear, normal breath sounds, no rhonchi, no respiratory distress, no accessory muscle use, no wheezing, speaking full sentences Cardiovascular #1: regular rate, rhythm, no edema Cardiovascular #2: 2+ radial (R), 2+ radial (L) Gastrointestinal: normal bowel sounds, non tender, soft, no mass, non-distended , no guarding, no pulsatile mass, no rebound Genitourinary: no CVA tenderness Musculoskeletal: back normal, digits/nails normal, gait/station normal, normal range of motion, other - NVI, left snuffbox tenderness, no ecchymosis, no swelling, no erythema, no deformity, cap Refill less than 2 seconds, tender - dorsum of left hand near proximal wrist, snuffbox left Neurologic: alert, oriented x3, responsive, motor strength/tone normal, SLR negative, sensory intact, cerebellar normal, normal gait, speech normal Psychiatric: mood/affect normal Skin: no rash Medical Decision Making PA Attestation Dr. Sheikh is my supervising Physician whom patient management has been discussed with. Diagnostic Impression: Primary Impression: Dysuria Additional Impression: Sprain of left hand ER Course Pt. presents to the ED c/o pain with urination, right-sided flank pain, left hand and wrist pain. Ddx considered but are not limited to fracture, sprain, strain, contusion, disc herniation, cystitis, pyelonephritis, STI, vaginitis, nephrolithiasis. No erythema, no warmth to touch, no fever, nontoxic appearing, low suspicion for septic joint. Soft compartments, no pulselessness, no pallor, no paresthesias, low suspicion for compartment syndrome at this time. No abdominal tenderness to palpation, negative railroad operator, negative Arvizu, negative Rovsing, low suspicion for cholecystitis or appendicitis, does not require imaging or labs at this time. Vital signs: are WNL, pt. is afebrile Ordered X-ray and pain medication. ER COURSE Provided with pain medication. UA results show no signs of infection, elevated protein consistent with previous visits, of a glucose likely due to history of diabetes, do not indicate UTI, will treat with Pyridium for pain. drink plenty of fluids. Follow-up with PCP. discussed referral to [facility]/. If concern for STI, followup with STI clinic for testing and treatment. Denies STI concern. Patient is resting comfortably in chair, nontoxic appearing, in no acute distress. Patient states they feel better and is ready to go home. An X-ray of the left wrist shows no acute fracture. An X-ray of the left hand shows no acute fracture. likely sprain causing symptoms. Due to snuffbox tenderness Will place patient into thumb spica splint. Discuss results with the patient. Provided patient with copy of results. Instructed patient to followup with PCP and discuss results of report with patient, discuss need for further treatment and referral. thumb spica Splint was applied to the left wrist and was checked afterwards by me showing good alignment and support with distal neurovascular functioning intact. Patient instructed on RICE method: rest, ice, compression, elevation. Patient instructed on rest, ice and heat. Patient instructed to be WBAT Contact information for orthopedic urgent care provided, follow-up with urgent care if unable to followup with primary care provider and get referral to measurement specialist. Followup with primary care provider. Discuss referral to ortho/pain management/ PT as needed. Discuss further imaging with MRI/CT as needed. DISCHARGE: -Rx provided for Ultram. CURES are reviewed. -Rx provided for pyridium. Side effect, turns urine orange. At this time pt. is stable for d/c to home. Patient is resting comfortably, in no acute distress, nontoxic appearing, talking without difficulty. Will provide printed patient care instructions, and any necessary prescriptions. Patient instructed to follow with primary care provider in 3 - 5 days and to request further follow-up as needed. Care plan and follow up instructions have been discussed with the patient prior to discharge. Take medications as directed. Patient questions asked and answered. Patient reports understanding and agreement to treatment plan. ER precautions given, patient instructed to return to ER immediately for any new or worsening of symptoms. - Please note that this Emergency Department Report was dictated using Urban Timespressure test operator technology software, occasionally this can lead to erroneous entry secondary to interpretation by the dictation equipment. Labs Test 10/19/18 18:36 Urine Color Pale yellow Urine Appearance Clear Urine pH 6.5 (4.5-8.0) Urine Specific [place] 1.010 (1.005-1.035) Urine Protein 3+ (NEGATIVE) Urine Glucose (UA) 4+ (NEGATIVE) Urine Ketones Negative (NEGATIVE) Urine Blood Negative (NEGATIVE) Urine Nitrite Negative (NEGATIVE) Urine Bilirubin Negative (NEGATIVE) Urine Urobilinogen Normal MG/DL (0.0-1.0) Urine Leukocyte Esterase Negative (NEGATIVE) Urine RBC 0-2 /HPF (0 - 2) Urine WBC 0-2 /HPF (0 - 2) Urine Squamous Epithelial Cells Few /LPF (NONE/OCC) Urine Bacteria None /HPF (NONE) Other X-Ray Diagnostic Results Other X-Ray Diagnostic Results #1: X-Ray ordered: left hand # of Views/Limited Vs Complete: 3 View Indication: Pain EP Interpretation: Yes PA Xray: Interpretation reviewed, by supervising MD, and agrees with findings. Interpretation: no dislocation, no soft tissue swelling, no fractures Impression: No acute disease PA Scribe Text Juan R Heard PA-C Other X-Ray Diagnostic Results #2: X-Ray ordered: left wrist # of Views/Limited Vs Complete: 3 View Indication: Pain EP Interpretation: Yes PA Xray: Interpretation reviewed, by supervising MD, and agrees with findings. Interpretation: no dislocation, no soft tissue swelling, no fractures Impression: No acute disease PA Scribe Text Juan R Heard PA-C Last Vital Signs Date Time Temp Pulse Resp B/P (MAP) Pulse Ox O2 Delivery O2 Flow Rate FiO2 10/19/18 18:26 98.2 100 18 98 Room Air Status: improved Disposition: HOME, SELF-CARE Condition: Stable Scripts Phenazopyridine Hcl* (PYRIDIUM*) 100 Mg Tablet 100 MG ORAL THREE TIMES A DAY, #10 TAB Prov: Ray Heard.Hannah 10/19/18 Tramadol Hcl* (ULTRAM*) 50 Mg Tablet 50 MG ORAL Q6H PRN for For Pain, #10 TAB 0 Refills Prov: Ray Heard 10/19/18 Patient Instructions: Dysuria, Flank Pain, [place]-[id number], Wrist Pain, Easy-to- Read Additional Instructions: Followup with primary care provider and followup with and/or OBGYN. Drink plenty of fluids.Pyridium has SE of turning urine orange. Patient instructed to follow up with primary care provider and discuss further referral to orthopedics/physical therapy/pain management as needed. If unable to followup with PCP, followup with orthopedic urgent care in 5-7 days , call to schedule appointment. Patient instructed on RICE method: rest, ice, compression, elevation. Patient instructed to WBAT. Take medications as directed. Patient questions asked and answered. ER precautions given, patient instructed to return to ER immediately for any new or worsening of symptoms. [facility] [address] [facility] [address] [facility], [id number] [email or web address] Ray Heard Oct 19, 2018 18:54
[2018-10-19 19:00] LABS: APPEARANCE,URINE CLEAR; BILIRUBIN, URINE NEGATIVE (NEGATIVE); COLOR,URINE PALE YELLOW; GLUCOSE, URINE (UA) 4+ (NEGATIVE); KETONES,URINE NEGATIVE (NEGATIVE); LEUKOCYTE ESTERASE ,URINE NEGATIVE (NEGATIVE); NITRITE,URINE NEGATIVE (NEGATIVE); PH,URINE 6.5 (4.5-8.0); PROTEIN,URINE 3+ (NEGATIVE); UROBILINOGEN,URINE NORMAL MG/DL (0.0-1.0)
[2018-10-19] MEDS ORDERED: Acetaminophen 500mg (ES) tab ORAL ONE (19:00)
[2018-10-19 19:20] VITALS: BP 159/91
--- NOTE | 2018-10-19 19:26 | Diagnostic Imaging Report ---
EXAM: XR Left Wrist Complete, 3 or More Views CLINICAL HISTORY: PAIN TECHNIQUE: Frontal, lateral and oblique views of the left wrist. COMPARISON: No relevant prior studies available. FINDINGS: Bones/joints: No acute displaced fracture or dislocation. Soft tissues: Unremarkable. No radiopaque foreign body. IMPRESSION: No acute displaced fracture or dislocation.
--- NOTE | 2018-10-19 19:27 | Diagnostic Imaging Report ---
EXAM: XR Left Hand Complete, 3 or More Views CLINICAL HISTORY: PAIN TECHNIQUE: Frontal, lateral and oblique views of the left hand. COMPARISON: No relevant prior studies available. FINDINGS: Bones/joints: No acute displaced fracture or dislocation. Soft tissues: Mild soft tissue swelling. No radiopaque foreign body. IMPRESSION: No acute displaced fracture or dislocation.
[2018-10-19] MEDS ORDERED: PHENAZOPYRIDIN100 MG ORAL (19:40)
[2018-10-19] MEDS ORDERED: TRAMADOL HCL50 MG ORAL (19:40)
[2018-10-19 19:45] VITALS: BP 149/89
== END 2018-10-19 20:24 | disposition home or self-care (01) ==
LOC: EMR 19:50
DX: S63.92XA Sprain of unspecified part of left wrist and hand, initial encounter (principal); W19.XXXA Unspecified fall, initial encounter; Y92.9 Unspecified place or not applicable; I10 Essential (primary) hypertension; E11.9 Type 2 diabetes mellitus without complications; R30.0 Dysuria
CPT/HCPCS: 81003; 99283

== ENCOUNTER 2019-05-19 02:53 | Emergency (ER) | payer MEDICAID ==
[~2019-05-19] VITALS: Ht 154.9 cm; Wt 79.4 kg
[~2019-05-19 02:53] MED LIST changes: +PHENAZOPYRIDIN100 MG ORAL; +UNOBMED
--- NOTE | 2019-05-19 03:06 | NUR ---
ED Nurse Note: PAtient reports earache for a month with worsening pain.
[2019-05-19 03:14] VITALS: BP 185/106
--- NOTE | 2019-05-19 03:23 | NUR ---
ED Nurse Note: Patient requesting medication for pain.
[2019-05-19] MEDS ORDERED: AUGMENTIN 875-1 EAC1 ORAL (03:27)
[2019-05-19] MEDS ORDERED: IBUPROFEN600 MG ORAL (03:27)
--- NOTE | 2019-05-19 03:28 | Emergency Room Report ---
History of Present Illness General Chief Complaint: Earache Source: Patient Present Illness HPI This is a 48-year-old female with history of high blood pressure and diabetes. She presents with bilateral ear pain. Mostly on the right side. This been an ongoing problem for her. Has not seen ENT yet. She said is been ongoing for over a month but the computer show that she has been here multiple times for the same thing over the last couple of years. Pain is 9 out of 10. Mostly the right side. Rating down her neck. No nausea no vomiting. Slight congestion. She is taking Claritin is not helping. No nausea no vomiting. No drainage. Allergies: Coded Allergies: No Known Allergies (Verified , 10/19/18) Patient History Past Medical History: see triage record, old chart reviewed, DM, HTN Past Surgical History: other Pertinent Family History: none Social History: Reports: smoking Last Menstrual Period: n/a Nursing Documentation-H Past Medical History: No History, Except For Hx Cardiac Problems: No Hx Hypertension: Yes Hx Asthma: No Hx COPD: No Hx Diabetes: Yes Hx Cancer: No Hx Gastrointestinal Problems: No Hx Dialysis: No Hx Neurological Problems: No Hx Cerebrovascular Accident: No Hx Seizures: No Hx Dizziness: Yes - RECENTLY Hx Headaches: Yes - 1 WEEK Hx Numbness: Yes - HANDS Hx Weakness: Yes - GEN BODY Hx Fatigue: Yes - GEN BODY Review of Systems Eye: Denies: eye pain, blurred vision ENT: Reports: ear pain; Denies: nose congestion, throat swelling Respiratory: Denies: cough, shortness of breath Cardiovascular: Denies: chest pain, palpitations Gastrointestinal: Denies: abdominal pain, diarrhea, nausea, vomiting Musculoskeletal: Denies: back pain, joint pain Skin: Denies: rash Neurological: Denies: headache, numbness Endocrine: Denies: increased thirst, increased urine Hematologic/Lymphatic: Denies: easy bruising All Other Systems: negative except mentioned in HPI Physical Exam Vital Signs Date Time Temp Pulse Resp B/P (MAP) Pulse Ox O2 Delivery O2 Flow Rate FiO2 05/19/19 02:58 98.8 91 18 185/106 (132) 8 Room Air Vitals with high blood pressure Sp02 EP Interpretation: reviewed, normal General Appearance: well appearing, no apparent distress, alert Head: normocephalic, atraumatic Eyes: bilateral eye PERRL, bilateral eye EOMI ENT: hearing grossly normal, normal pharynx, other - Right TM with effusion and cloudiness. No perforation. Neck: full range of motion, supple, no meningismus Respiratory: chest non-tender, lungs clear, normal breath sounds Cardiovascular #1: regular rate, rhythm, no murmur Gastrointestinal: normal bowel sounds, non tender, no mass, no organomegaly, no bruit, non-distended Musculoskeletal: back normal, gait/station normal, normal range of motion Psychiatric: mood/affect normal Skin: warm/dry Medical Decision Making Diagnostic Impression: Primary Impression: Right otitis media with effusion Additional Impression: Hypertension Qualified Codes: I10 - Essential (primary) hypertension ER Course Patient with otitis media. No evidence of perforation or mastoiditis. Will discharge home. Patient will need ENT follow-up. I was going to put her on Sudafed but blood pressure is elevated. We will hold off on it. Last Vital Signs Date Time Temp Pulse Resp B/P (MAP) Pulse Ox O2 Delivery O2 Flow Rate FiO2 05/19/19 03:14 98.8 89 18 185/106 8 Room Air Status: unchanged Disposition: HOME, SELF-CARE Condition: Stable Scripts Ibuprofen* (MOTRIN*) 600 Mg Tablet 600 MG ORAL THREE TIMES A DAY, #30 TAB 0 Refills Prov: Karl Sweet MD 05/19/19 Amoxicillin/Potassium Clav 875-125* (AUGMENTIN 875-125 TABLET*) 1 Each Tablet 1 TAB ORAL TWICE A DAY, #14 TAB Prov: Karl Sweet MD 05/19/19 Patient Instructions: Otitis Media, Adult, [id number] Additional Instructions: Follow-up with your doctor in a week. You may benefit from a referral to see ENT. Return if worse. Karl Sweet MD May 19, 2019 03:28
--- NOTE | 2019-05-19 03:44 | NUR ---
ED Nurse Note: Patient cleared for discharge, verbalized understanding of discharge instructions. Jo is ambulatory with steady gait, alert and oriented x4, and has no s/s of acute distress. Patient departed with all belongings to be transported home by her friend.
[2019-05-19 03:46] VITALS: BP 185/106
== END 2019-05-19 03:46 | disposition home or self-care (01) ==
LOC: EMR 03:04
DX: H66.91 Otitis media, unspecified, right ear (principal); I10 Essential (primary) hypertension; F17.200 Nicotine dependence, unspecified, uncomplicated; E11.9 Type 2 diabetes mellitus without complications
CPT/HCPCS: 99282

== ENCOUNTER → 2021-01-06 | Emergency (ER) | payer MEDICAID ==
[~2021-01-06] VITALS: Ht 154.9 cm; Wt 68.0 kg
[~2021-01-06] MED LIST changes: +Morphine Sulfate 4mg/ml Inj (IV USE ONLY) IVP ONE; +Omnipaque-300 100ml vial INJ PRN; +ZOFRAN ODT8 MG ORAL
[2021-01-06 15:20] VITALS: BP 160/105
[2021-01-06 15:48] LABS: BASOPHILS % (AUTO) 1.3 % (0.0-2.0); EOSINOPHILS % (AUTO) 2.7 % (0.0-3.0); HEMATOCRIT 37.2 % (37.0-47.0); HEMOGLOBIN 12.3 G/DL (12.0-16.0); LYMPHOCYTES % (AUTO) 25.6 % (20.0-45.0); MEAN CORPUSCULAR VOLUME 83 FL (80-99); MONOCYTES % (AUTO) 6.8 % (1.0-10.0); NEUTROPHILS % (AUTO) 63.7 % (45.0-75.0); PLATELET COUNT 332 K/UL (150-450); RED CELL DISTRIBUTION WIDTH 14.7 % (11.6-14.8)
[2021-01-06 16:01] LABS: ANION GAP 7 mmol/L (5-15); BLOOD UREA NITROGEN 22 mg/dL (7-18); CALCIUM 9.5 MG/DL (8.5-10.1); CARBON DIOXIDE 27 MMOL/L (21-32); CHLORIDE 107 MMOL/L (98-107); POTASSIUM 3.9 MMOL/L (3.5-5.1); SODIUM 141 MMOL/L (136-145)
[2021-01-06 16:05] LABS: ALANINE AMINOTRANSFERASE 34 U/L (12-78); ALBUMIN 3.7 G/DL (3.4-5.0); ALBUMIN/GLOBULIN RATIO 0.9 (1.0-2.7); ALKALINE PHOSPHATASE 75 U/L (46-116); ASPARTATE AMINO TRANSFERASE 22 U/L (15-37); BILIRUBIN,TOTAL 0.5 MG/DL (0.2-1.0)
--- NOTE | 2021-01-06 17:19 | NUR ---
Nurses note: Pt report rodolfo, provider notified, Dr. Grace give verbal order of ondasetron 8mg IV now, order taken
--- NOTE | 2021-01-06 17:26 | Emergency Room Report ---
History of Present Illness General Chief Complaint: Constipation Source: Patient Present Illness HPI The patient states that she has had ongoing constipation for the past year. She associates this constipation with a hysterectomy that she had in January of last year. She states her constipation has been severe. She has been intermittently on narcotics. Most recently she was on narcotics for a kidney stone. She states that she has not had a true bowel movement in many months. She does have small hard ball-like stools intermittently. She states she had this type of stool yesterday. She states she has abdominal pain and vomiting. She does have a referral to a hair spring cutter but has not gone to the hair spring cutter yet. She is seeing her primary care physician for this. She denies fever or chills. She denies cough or congestion. She denies shortness of breath or chest pain. She has no other complaints. Allergies: Coded Allergies: No Known Allergies (Verified , 10/19/18) COVID-19 Screening Contact w/high risk pt: No Experienced COVID-19 symptoms?: No COVID-19 Testing performed CHIEF JAILER: No Patient History Past Medical History: see triage record, DM, HTN Past Surgical History: appy, hysterectomy Social History: Denies: smoking, alcohol use, drug use Reviewed Nursing Documentation: PMH: Agreed; PSxH: Agreed Nursing Documentation-PMH Past Medical History: No History, Except For Hx Cardiac Problems: No Hx Hypertension: Yes Hx Asthma: No Hx COPD: No Hx Diabetes: Yes Hx Cancer: No Hx Gastrointestinal Problems: No Hx Dialysis: No Hx Neurological Problems: No Hx Cerebrovascular Accident: No Hx Seizures: No Hx Dizziness: Yes - RECENTLY Hx Headaches: Yes - 1 WEEK Hx Numbness: Yes - HANDS Hx Weakness: Yes - GEN BODY Hx Fatigue: Yes - GEN BODY Review of Systems All Other Systems: negative except mentioned in HPI Physical Exam Vital Signs Date Time Temp Pulse Resp B/P (MAP) Pulse Ox O2 Delivery O2 Flow Rate FiO2 01/06/21 15:00 98.2 108 18 160/105 (123) 96 Room Air Sp02 EP Interpretation: reviewed, normal General Appearance: no apparent distress, alert, GCS 15, non-toxic Head: normocephalic, atraumatic Eyes: bilateral eye normal inspection ENT: hearing grossly normal, normal pharynx, no angioedema, normal voice Neck: normal inspection, full range of motion Respiratory: no respiratory distress, no retraction, no accessory muscle use, speaking full sentences Cardiovascular #1: regular rate, rhythm, no edema Gastrointestinal: soft, non-distended, no guarding, no rebound, tenderness - TTP diffusely Rectal: deferred Musculoskeletal: back normal, normal range of motion, gait/station normal, non- tender Neurologic: alert, motor strength/tone normal, oriented x3, sensory intact, responsive, speech normal Psychiatric: judgement/insight normal, memory normal, mood/affect normal, no suicidal/homicidal ideation Skin: no rash, normal color Medical Decision Making Diagnostic Impression: Primary Impression: Constipation ER Course This patient presents with severe ongoing medication resistant constipation. My differential diagnosis includes: Small bowel obstruction, bowel mass, functional constipation, medication side effect. Given the ongoing constipation despite multiple regimens to include milk of magnesia, MiraLAX, enemas the patient continues to have severe constipation. I felt I should evaluate the abdomen with imaging to rule out a partial small bowel obstruction or bowel mass. CT of the abdomen pelvis showed no abnormal findings other than constipation and stool burden in the colon. Specifically, there is no evidence of bowel obstruction or mass. The patient is under the care of her primary care physician and has a referral to a hair spring cutter. She is given a soap-suds enema here in the emergency department and did have a bowel movement. The patient was educated that constipation like this requires diligence to a bowel regimen to include her laxatives and attention to her diet in addition to stopping all narcotics. I suspect this is narcotic related. Patient was requesting pain medication in the emergency department and antianxiety medication. The patient was educated will take at least 30 days to clear her constipation and that that will not be done in the emergency department. She is instructed to follow-up closely with her primary care physician and the hair spring cutter as planned. This patient was evaluated in the context of the global COVID-19 pandemic, which necessitated consideration that the patient might be at risk for infection with the [id number] virus that causes COVID-19. Institutional protocols and algorithms that pertain to the evaluation of patients at risk for COVID-19 and the state of rapid change based on information released by multiple regulatory bodies including the CDC and federal and state organizations. These policies and algorithms were followed during the patient's care in the ED. Laboratory Tests Test 01/06/21 15:29 01/06/21 18:18 White Blood Count 8.0 K/UL (4.8-10.8) Red Blood Count 4.50 M/UL (4.20-5.40) Hemoglobin 12.3 G/DL (12.0-16.0) Hematocrit 37.2 % (37.0-47.0) Mean Corpuscular Volume 83 FL (80-99) Mean Corpuscular Hemoglobin 27.4 PG (27.0-31.0) Mean Corpuscular Hemoglobin Concent 33.1 G/DL (32.0-36.0) Red Cell Distribution Width 14.7 % (11.6-14.8) Platelet Count 332 K/UL (150-450) Mean Platelet Volume 7.4 FL (6.5-10.1) Neutrophils (%) (Auto) 63.7 % (45.0-75.0) Lymphocytes (%) (Auto) 25.6 % (20.0-45.0) Monocytes (%) (Auto) 6.8 % (1.0-10.0) Eosinophils (%) (Auto) 2.7 % (0.0-3.0) Basophils (%) (Auto) 1.3 % (0.0-2.0) Sodium Level 141 MMOL/L (136-145) Potassium Level 3.9 MMOL/L (3.5-5.1) Chloride Level 107 MMOL/L (98-107) Carbon Dioxide Level 27 MMOL/L (21-32) Anion Gap 7 mmol/L (5-15) Blood Urea Nitrogen 22 mg/dL (7-18) H Creatinine 1.0 MG/DL (0.55-1.30) Estimated Glomerular Filtration Rate > 60 mL/min (>60) Glucose Level 106 MG/DL (74-106) Calcium Level 9.5 MG/DL (8.5-10.1) Total Bilirubin 0.5 MG/DL (0.2-1.0) Aspartate Amino Transferase (AST) 22 U/L (15-37) Alanine Aminotransferase (ALT) 34 U/L (12-78) Alkaline Phosphatase 75 U/L (46-116) Total Protein 8.0 G/DL (6.4-8.2) Albumin 3.7 G/DL (3.4-5.0) Globulin 4.3 g/dL Albumin/Globulin Ratio 0.9 (1.0-2.7) L Urine Color Pale yellow Urine Appearance Clear Urine pH 7 (4.5-8.0) Urine Specific [place] 1.005 (1.005-1.035) Urine Protein Negative (NEGATIVE) Urine Glucose (UA) Negative (NEGATIVE) Urine Ketones Negative (NEGATIVE) Urine Blood Negative (NEGATIVE) Urine Nitrite Negative (NEGATIVE) Urine Bilirubin Negative (NEGATIVE) Urine Urobilinogen Normal MG/DL (0.0-1.0) Urine Leukocyte Esterase Negative (NEGATIVE) Urine HCG, Qualitative Negative (NEGATIVE) Laboratory Tests Test 01/06/21 15:29 White Blood Count 8.0 K/UL (4.8-10.8) Red Blood Count 4.50 M/UL (4.20-5.40) Hemoglobin 12.3 G/DL (12.0-16.0) Hematocrit 37.2 % (37.0-47.0) Mean Corpuscular Volume 83 FL (80-99) Mean Corpuscular Hemoglobin 27.4 PG (27.0-31.0) Mean Corpuscular Hemoglobin Concent 33.1 G/DL (32.0-36.0) Red Cell Distribution Width 14.7 % (11.6-14.8) Platelet Count 332 K/UL (150-450) Mean Platelet Volume 7.4 FL (6.5-10.1) Neutrophils (%) (Auto) 63.7 % (45.0-75.0) Lymphocytes (%) (Auto) 25.6 % (20.0-45.0) Monocytes (%) (Auto) 6.8 % (1.0-10.0) Eosinophils (%) (Auto) 2.7 % (0.0-3.0) Basophils (%) (Auto) 1.3 % (0.0-2.0) Sodium Level 141 MMOL/L (136-145) Potassium Level 3.9 MMOL/L (3.5-5.1) Chloride Level 107 MMOL/L (98-107) Carbon Dioxide Level 27 MMOL/L (21-32) Anion Gap 7 mmol/L (5-15) Blood Urea Nitrogen 22 mg/dL (7-18) H Creatinine 1.0 MG/DL (0.55-1.30) Estimated Glomerular Filtration Rate > 60 mL/min (>60) Glucose Level 106 MG/DL (74-106) Calcium Level 9.5 MG/DL (8.5-10.1) Total Bilirubin 0.5 MG/DL (0.2-1.0) Aspartate Amino Transferase (AST) 22 U/L (15-37) Alanine Aminotransferase (ALT) 34 U/L (12-78) Alkaline Phosphatase 75 U/L (46-116) Total Protein 8.0 G/DL (6.4-8.2) Albumin 3.7 G/DL (3.4-5.0) Globulin 4.3 g/dL Albumin/Globulin Ratio 0.9 (1.0-2.7) L CT/MRI/US Diagnostic Results CT/MRI/US Diagnostic Results : Imaging Test Ordered: CT abd/pelvis: Impression IMPRESSION: 1. Findings suggestive of cystitis and right ascending urinary tract infection. 2. Large amount of stool. No bowel obstruction. Last Vital Signs Date Time Temp Pulse Resp B/P (MAP) Pulse Ox O2 Delivery O2 Flow Rate FiO2 01/06/21 15:20 98.2 18 160/105 96 Room Air 01/06/21 15:00 108 Status: improved Disposition: HOME, SELF-CARE Condition: Improved Referrals: [facility],REFERRING (PCP) Patient Instructions: Constipation, Adult Erin Grace DO Jan 06, 2021 17:26
--- NOTE | 2021-01-06 17:50 | NUR ---
Nurses note: Pt report abdominal pain 08/08, Dr. Grace notified, no orders at this time
--- NOTE | 2021-01-06 18:04 | Diagnostic Imaging Report ---
EXAM: CT Abdomen and Pelvis With Intravenous Contrast CLINICAL HISTORY: ABD PAIN TECHNIQUE: Axial computed tomography images of the abdomen and pelvis with intravenous contrast. CTDI is 6.7 mGy and DLP is 354.9 mGy-cm. One or more of the following dose reduction techniques were used: automated exposure control, adjustment of the mA and/or kV according to patient size, use of iterative reconstruction technique. COMPARISON: 09/13/2016 FINDINGS: ABDOMEN: Liver: Unremarkable. No mass. Gallbladder and bile ducts: Cholecystectomy. No ductal dilation. Pancreas: Unremarkable. No mass. No ductal dilation. Spleen: Unremarkable. No splenomegaly. Adrenals: Unremarkable. No mass. Kidneys and ureters: There is some wall thickening and increased enhancement in the right ureter. No hydronephrosis. Stomach and bowel: Large amount of stool in the colon. No mucosal thickening. PELVIS: Appendix: Appendectomy. Bladder: There is some wall thickening of the bladder. Reproductive: Hysterectomy. ABDOMEN and PELVIS: Intraperitoneal space: Unremarkable. No free air. No significant fluid collection. Bones/joints: No acute fracture. No dislocation. Soft tissues: Unremarkable. Vasculature: Unremarkable. No abdominal aortic aneurysm. Lymph nodes: Unremarkable. No enlarged lymph nodes. IMPRESSION: 1. Findings suggestive of cystitis and right ascending urinary tract infection. 2. Large amount of stool. No bowel obstruction.
[2021-01-06 18:37] LABS: APPEARANCE,URINE CLEAR; BILIRUBIN, URINE NEGATIVE (NEGATIVE); COLOR,URINE PALE YELLOW; GLUCOSE, URINE (UA) NEGATIVE (NEGATIVE); KETONES,URINE NEGATIVE (NEGATIVE); LEUKOCYTE ESTERASE ,URINE NEGATIVE (NEGATIVE); NITRITE,URINE NEGATIVE (NEGATIVE); PH,URINE 7 (4.5-8.0); PROTEIN,URINE NEGATIVE (NEGATIVE); UROBILINOGEN,URINE NORMAL MG/DL (0.0-1.0)
--- NOTE | 2021-01-06 19:00 | NUR ---
Nurses Note : soud soup enema given pt able to get stole out. pt in bed side commode
--- NOTE | 2021-01-06 19:05 | NUR ---
Syed note: Report given to night shift RN
== END | disposition home or self-care (01) ==
LOC: EMR 15:15
DX: K59.00 Constipation, unspecified (principal); Z90.710 Acquired absence of both cervix and uterus; E11.9 Type 2 diabetes mellitus without complications; I10 Essential (primary) hypertension; Z90.89 Acquired absence of other organs
CPT/HCPCS: 36415; 74177; 80053; 81003; 81025; 85025; 96361; 96374; 96375; J2270; J2405; J7030; Q9965; Z7502; 99284